=== PATIENT | female | born 1970 | race Caucasian/White ===

== ENCOUNTER → 2019-03-22 | Outpatient (CLI) | payer OTHER ==
[2019-03-22 10:00] LABS: PLATELET COUNT 185 x10^3mcL (130-400)
[2019-03-22 10:33] LABS: ALT/SGPT 28 U/L (14-59); AST/SGOT 26 U/L (15-37); CHLORIDE SERUM 103 mmol/L (98-107); CREATININE SERUM 0.6 mg/dL (0.6-1.0); GFR1 > 60 mL/min; GLUCOSE SERUM 89 mg/dL (74-106); MAGNESIUM 2.1 mg/dL (1.8-2.4); SODIUM SERUM 138 mmol/L (136-145); TRIGLYCERIDES 108 mg/dL (<150); URIC ACID 1.6 mg/dL (2.6-6.0)
[2019-03-22 10:36] LABS: RED CELL DISTRIBUTION WIDTH 15.5 % (11.5-14.5)
[2019-03-22 10:48] LABS: CHOLESTEROL 132 mg/dL (<200)
[2019-03-22 10:51] LABS: ALKALINE PHOSPHATASE 93 U/L (46-116); BILIRUBIN TOTAL 0.57 mg/dL (0.20-1.00); CARBON DIOXIDE 28.7 mmol/L (21-32); FREE T4 1.22 ng/dL (0.76-1.46)
[2019-03-22 10:52] LABS: ALBUMIN 3.5 g/dL (3.4-5.0); CHOLESTEROL/HDL RATIO 4.1; HDL CHOLESTEROL 32 mg/dL (40-60); TOTAL PROTEIN, SERUM 9.2 g/dL (6.4-8.2)
[2019-03-22 10:54] LABS: C REACTIVE PROTEIN < 0.2 mg/dL (<=0.9)
[2019-03-22 11:35] LABS: ERYTHROCYTE SED RATE 71 mm/hr (0-20)
[2019-03-22 13:30] LABS: BAND NEUTROPHIL 2 % (0-10); MONOCYTE 9 % (0-7); SEGMENTED NEUTROPHILS 69 % (37-75)
[2019-03-22 13:31] LABS: PLATELET MORPHOLOGY PLATELETS NORMAL; rbc morphology (normal/abnorm) NORMAL (NORMAL)
[2019-03-23 09:07] LABS: COMPLEMENT C3 103 mg/dL (82-167); COMPLEMENT C4 19 mg/dL (14-44)
== END | disposition home or self-care (01) ==
LOC: LB 09:07
DX: Z00.00 Encounter for general adult medical examination without abnormal findings (principal); M32.9 Systemic lupus erythematosus, unspecified
CPT/HCPCS: 84439; 86225